=== PATIENT | female | born 1940 | race Caucasian/White ===

== ENCOUNTER 2020-08-16 18:13 | Emergency (ER) | payer MEDICARE ==
[~2020-08-16] VITALS: Ht 271.8 cm; Wt 58.1 kg
[~2020-08-16 18:13] MED LIST: ARMOUR THYROID60 MG PO; LOSARTAN POTASS25 MG PO
[2020-08-16] MEDS ORDERED: DEXAMETHASONE SOD PHOS 10 MG/1 ML VIAL IV ONE (18:45)
[2020-08-16] MEDS ORDERED: CEFTRIAXONE SOD 1 GM/50 ML BAG IV ONE (18:45)
[2020-08-16] MEDS ORDERED: AZITHROMYCIN 500MG/NS 250 ML 250 ML IV ONE (18:45)
[2020-08-16] MEDS ORDERED: CEFTRIAXONE SOD 1 GM in SODIUM CHLORIDE 0.9% 50ML 50 ML IV ONE (19:15)
[2020-08-16 19:16] LABS: BASOPHILS % 0.1 % (0.0-1.0); HEMATOCRIT 34.5 % (34.2-44.1); HEMOGLOBIN 11.5 g/dL (12.0-16.0); LYMPHOCYTES # (AUTO) 0.6 (1.0-3.2); LYMPHOCYTES % 8.2 % (18.0-39.1); MEAN CORPUSCULAR HEMOGLOBIN 29.6 pg (28-32); MEAN CORPUSCULAR HGB CONC 33.3 g/dL (31-35); MEAN CORPUSCULAR VOLUME 88.9 fL (81-99); MONOCYTES # (AUTO) 0.5 (0.2-0.8); MONOCYTES % 7.1 % (4.4-11.3); NEUTROPHILS # (AUTO) 6.3 (2.1-6.9); NEUTROPHILS % 84.2 % (38.7-80.0); PLATELET COUNT 286 x10e3/uL (140-360); RED BLOOD COUNT 3.88 x10e6/uL (3.6-5.1)
[2020-08-16 19:26] LABS: INR 0.94; PARTIAL THROMBOPLASTIN TIME 27.9 seconds (23.8-35.5); PROTHROMBIN TIME 13.1 seconds (11.9-14.5)
[2020-08-16 19:34] LABS: ALANINE AMINOTRANSFERASE 40 IU/L (0-55); ALBUMIN 2.8 g/dL (3.5-5.0); ALBUMIN/GLOBULIN RATIO 0.8 (0.8-2.0); ALKALINE PHOSPHATASE 92 IU/L (40-150); ANION GAP 13.9 mmol/L (8-16); BLOOD UREA NITROGEN 14 mg/dL (7-26); BUN/CREATININE RATIO 22 (6-25); CALCIUM 8.2 mg/dL (8.4-10.2); CARBON DIOXIDE 24 mmol/L (22-29); CHLORIDE 99 mmol/L (98-107); CREATINE KINASE 133 IU/L (29-168); CREATININE, SERUM 0.65 mg/dL (0.57-1.11); EST GLOMERULAR FILTRATION RATE > 60 ML/MIN (60-); GLUCOSE 130 mg/dL (74-118); POTASSIUM 3.9 mmol/L (3.5-5.1); SODIUM 133 mmol/L (136-145)
== END 2020-08-17 01:17 | disposition other institution (70) ==
LOC: ER 18:22
DX: U07.1 COVID-19 (principal); J18.9 Pneumonia, unspecified organism; R09.02 Hypoxemia; R05 Cough; Z99.81 Dependence on supplemental oxygen; I10 Essential (primary) hypertension; E03.9 Hypothyroidism, unspecified
CPT/HCPCS: 36415; 71045; 80053; 82550; 82553; 83880; 84484; 85025; 85610; 85730; 87040; 93005; 99284; J0456; J0696; J1100; U0002